=== PATIENT | female | born 1965 | race Caucasian/White ===

== ENCOUNTER → 2018-08-07 12:53 | Outpatient (CLI) | payer OTHER, SELFPAY ==
[2018-08-07 13:11] LABS: D-Dimer Quantitative (DVT/PE) < 0.27 FEU/ug/m (0.27-0.49)
== END ==
PROVIDERS: Referring Provider Family Medicine; Visit Provider Family Medicine
DX: R07.9 Chest pain, unspecified (principal)
CPT/HCPCS: 85379

== ENCOUNTER 2024-08-10 20:23 | Emergency (ER) | payer BC, SELFPAY ==
[2024-08-10 20:24] VITALS: BP 104/83; PULSE 96; RESP 16; TEMP 36.8; O2SAT 100; BMI 25.8
--- NOTE | 2024-08-10 20:51 | EKG12_ITS ---
Test Reason : Blood Pressure : */* mmHG Vent. Rate : 75 BPM Atrial Rate : 75 BPM P-R Int : 150 ms QRS Dur : 82 ms QT Int : 392 ms P-R-T Axes : 66 50 64 degrees QTcB Int : 437 ms Normal sinus rhythm Normal ECG Confirmed by MARY GRACE LEE, YAJAIRA ([id number]), social media editor HOLLEY SOTOMAYOR ([id number]) on 08/11/2024 8:54:45 AM Referred By: Confirmed By: YAJAIRA BRODY MD
--- NOTE | 2024-08-10 21:03 | RAD_ITS ---
PROCEDURE: CHEST 1 VIEW (PORTABLE) REASON FOR EXAM: Chest pain. TECHNIQUE: Frontal view of the chest. COMPARISON: None. FINDINGS: The cardiac and mediastinal contours are normal. The lungs are clear. RAD/Chest 1 View (Portable) IMPRESSION: NEGATIVE SINGLE VIEW OF THE CHEST. Reading Location: [id number]
[2024-08-10 21:12] LABS: Absolute Lymphocyte Count 0.24 X10^3/uL (0.83-4.51); Absolute Neutrophil Count 9.6 X10^3/uL (2.0-7.7); Basophil# 0.06 X10^3/uL; Basophil% 0.6 % (0-1); Eosinophil# 0.13 X10^3/uL; Eosinophils% 1.3 % (0-5); Hematocrit 45.8 % (37-47); Hemoglobin 15.5 g/dL (12.0-15.0); Lymphocyte # 0.24 X10^3/ul (0.83-4.51); Lymphocyte % 2.3 % (19-41); Mean Corp Hgb Conc 33.8 g/dL (32-36); Mean Corpuscular Hgb 31.7 pg (27.0-32.0); Mean Corpuscular Volume 93.7 fL (81-99); Mean Platelet Vol. 8.6 fl (6.2-12.0); Monocyte# 0.29 X10^3/uL; Monocyte% 2.8 % (0-10); NRBC Flagged by Analyzer 0 % (0-5); Neutrophil # 9.55 X10^3/uL (2.7-7.7); Neutrophil % 92.7 % (47-70); POSITIVE DIFFERENTIAL YES; Platelet Count 171 K/mm3 (150-450); RBC Distribution Width CV 11.6 % (11.6-14.6); RBC Distribution Width SD 39.7 fl (35.1-43.9); Red Blood Count 4.89 M/mm3 (4.2-5.4); White Blood Count 10.3 K/mm3 (4.4-11.0)
[2024-08-10 21:23] VITALS: BP 130/79; PULSE 79; RESP 20; O2SAT 100
[2024-08-10] MEDS: 0.9% Normal Saline (1000mL) 1,000 ML 999 ML IV (21:26)
[2024-08-10] MEDS: Aspirin 81 MG TAB.CHEW 324 MG PO (21:26)
[2024-08-10] MEDS: Ondansetron 4 MG/2 ML Vial IV (21:26)
[2024-08-10 21:36] LABS: Anion Gap 7 (5-15); BUN 28 mg/dL (7-18); BUN/Creat Ratio 34.3 RATIO (10-20); Calcium,Total 8.9 mg/dL (8.5-10.1); Chloride 108 mmol/L (98-107); Creatinine, Serum 0.82 mg/dL (0.55-1.02); EST Glomerular Filtration Rate 76 mL/min (>60); Est Glom Filt Rate - Afr Amer 93 mL/min (>60); Estimated Creatinine Clearance 76.29 ml/min; Glucose 118 mg/dL (74-106); Potassium 3.9 mmol/L (3.5-5.1); Sodium Level 138 mmol/L (136-145); Troponin-I HS (w/2H Reflex) < 3 pg/mL (3.0-54.0)
[2024-08-10 22:00] VITALS: BP 125/75; O2SAT 98
--- NOTE | 2024-08-10 22:08 | ED.VIS.CHEST ---
HPI History of Present Illness Chief Complaint: Chest Pain Informant: patient Narrative Narrative: Presents for chest pain started around 7 PM states tightness. While at work earlier headache and nausea. Went home. Vomiting x 2. No hematemesis. No cough. No myalgias. Due to chest symptoms came to ED. Denies dyspnea denies radicular symptoms. No history of [place]. No allergies. No recent travel, surgeries, no immobilizations. No history of PE or DVT. Denies tobacco, family history denies young age, hypertension, hyperlipidemia, diabetes. Prior Similar Symptoms: No CVD Risk Factors: Negative for Hypertension, Diabetes, Hypercholesterolemia, Family History 1' </=55 or Smoking PE Risk Factors: Negative for Recent Travel/Surgery, Recent Immobilization, Prior DVT or PE or Cancer [facility] Medical History Encounter for examination required by Department of Transportation (DOT) Home Medications ?Medication ?Instructions ?Recorded ?Last Taken ?Type ondansetron 4 mg disintegrating 4 mg PO Q8H PRN PRN Nausea #10 tabs 08/10/24 Unknown Rx tablet Allergy/AdvReac Type Severity Reaction Status Date / Time No Known Allergies Allergy Verified 08/10/24 20:26 Social History Smoking Status: Never smoker ROS [facility] ED Constitutional Constitutional ED: Denies chills, fever(s) or sweats ENT ENT ED: Denies sore throat Cardiovascular Cardiovascular: Reports chest pain; Denies leg edema, palpitations or racing heartbeat Respiratory/Chest Respiratory/Chest: Denies cough, dyspnea or dyspnea on exertion Gastrointestinal Gastrointestinal: Reports nausea and vomiting; Denies abdominal pain or diarrhea Genitourinary Genitourinary ED: Denies dysuria, hematuria or urinary frequency Musculoskeletal Musculoskeletal: Denies back pain, extremity pain or neck pain Integumentary Denies rash or wounds Neurologic Neurologic: Reports headache(s); Denies paresthesias or weakness EXAM Physical Exam Const Vital Signs: 08/10/24 20:24 08/10/24 21:20 08/10/24 21:23 Temperature 98.2 F Temperature Source Oral Pulse Rate 96 79 Respiratory Rate 16 20 H Blood Pressure 104/83 H 130/79 H Blood Pressure Mean 90 96 Pulse Ox 100 100 Oxygen Delivery Method Room Air Room Air Room Air 08/10/24 22:00 08/10/24 23:00 08/10/24 23:44 Temperature 98.4 F Temperature Source Pulse Rate 70 Respiratory Rate 15 16 Blood Pressure 125/75 H 130/79 H 124/75 H Blood Pressure Mean 91 96 91 Pulse Ox 98 96 100 Oxygen Delivery Method Room Air Room Air Positive well nourished and well developed General Appearance ED: well developed and NAD HEENT Reports moist mucous membranes normocephalic and atraumatic Eyes General Eye ED: Yes normal appearance of both eyes Neck full ROM Neck Narrative: No meningismus Chest Wall Chest: Negative for tenderness Resp normal respiratory effort and normal air movement Effort and Inspection: symmetric chest movement; Negative for respiratory distress Cardio regular rate, regular rhythm and no murmurs Peripheral Pulses: pulses 2+ throughout GI normal to inspection, nondistended, normoactive bowel sounds and non-tender Palpation: Negative for guarding or rebound tenderness present Extremity normal to inspection General Extremety ED: Negative for edema or tenderness General Extremity: Negative for edema Neuro oriented x3, CN's II-XII intact bilaterally and no sensory deficits noted Sensorium / Orientation: awake and alert Skin no rashes or lesions noted and no wounds Heart Score History: Slightly/Non-Suspicious ECG: Normal Age: >45 - <65 years Risk Factors: 1 or 2 Risk Factors Troponin: </= Normal Limit Score: 2 MDM MDM MDM Narrative Medical decision making narrative: Interventions / MDM: Differential diagnosis: Viral syndrome, chest pain Diagnosis considered but do not suspect: No clinical meningitis My EKG interpretation: Sinus rate of 75, no ST or T wave changes. Imaging independently reviewed and interpreted by myself: 1 view chest x-ray: No acute process. External documents reviewed: N/A Test considered but not ordered:N/A ED course: Chest pain with earlier headache nausea and vomiting. EKG sinus rhythm no acute findings. Cardiac workup initiated, aspirin ordered, fluids with Zofran. Labs troponin less than 3, per hospital algorithm no ACS concerns. Creatinine 0.82. Hemoglobin 15.5. Chest x-ray negative. Reevaluation symptom-free including her headache with fluids and Zofran. Viral swabs negative for COVID, influenza and RSV. Discussed viral syndrome with the patient atypical chest pain. Outpatient follow with her doctor with strict return precautions. All questions were answered. Re-evaluation: stable Disposition discussed with patient/family/significant other: Patient Case discussed with consulting clinician: N/A This note was generated with [employer] dictation software. It may contain incorrect words, spelling, and punctuation that were not noted in checking the note before signing. Lab Data Attestation: I reviewed the patient's lab results. Labs: Laboratory Results - last 24 hr 08/10/24 20:43 WBC 10.3 RBC 4.89 Hgb 15.5 H Hct 45.8 MCV 93.7 MCH 31.7 MCHC 33.8 RDW Std Deviation 39.7 RDW Coeff of [place] 11.6 Plt Count 171 MPV 8.6 Immature Gran % (Auto) 0.300 Neut % (Auto) 92.7 H Lymph % (Auto) 2.3 L Riley % (Auto) 2.8 Eos % (Auto) 1.3 Baso % (Auto) 0.6 Absolute Neuts (auto) 9.6 H Absolute Lymphs (auto) 0.24 L Nucleated RBC % 0 Sodium 138 Potassium 3.9 Chloride 108 H Carbon Dioxide 24.0 Anion Gap 7 BUN 28 H Creatinine 0.82 Estim Creat Clear Calc 76.29 Est GFR (MDRD) Af Amer 93 Est GFR (MDRD) Non-Af 76 BUN/Creatinine Ratio 34.3 H Glucose 118 H Calcium 8.9 Troponin I High Sens < 3 L Radiography Diagnostic Testing: Clinical Impression(s) from Imaging Studies Chest X-Ray 08/10/24 21:03 IMPRESSION: NEGATIVE SINGLE VIEW OF THE CHEST. Reading Location: [facility] Discharge Plan Triage Chief Complaint: Chest Pain ED Provider: Shaheed Hargrove Dx/Rx/DC Orders Clinical Impression: Acute viral syndrome, Chest pain Instructions: ED Viral Syndrome (Adult), ED Chest Pain, Noncardiac (Child) Prescriptions: New ondansetron 4 mg tablet,disintegrating 4 mg PO Q8H PRN PRN (Reason: Nausea) Qty: 10 0RF Stand Alone Forms: Work / School Excuse Primary Care Provider: Arianna Jose NP Referrals: Arianna Jose CLINICAL SOCIAL WORK THERAPIST, CLINICAL SOCIAL WORK THERAPIST-C [Primary Care Provider] - 1 Week Activity Restrictions/Additional Instructions: Cardiac workup negative. Chest x-ray negative. COVID, flu, RSV negative. Continue Tylenol or Motrin as needed. Continue oral fluids. Zofran as needed. Follow-up with your doctor. Print Language: Cameroonian Disposition Disposition: Home, Self Care Discharge Date/Time: 08/10/24 23:48
[2024-08-10 23:00] VITALS: BP 130/79; RESP 15; O2SAT 96
[2024-08-10 23:09] LABS: Reflex Troponin-HS? (from REC) Y
[2024-08-10 23:44] VITALS: BP 124/75; PULSE 70; RESP 16; TEMP 36.9; O2SAT 100
== END 2024-08-10 23:48 | disposition home or self-care (01) ==
PROVIDERS: Emergency Provider Emergency Medicine; PCP Registered Nurse; Visit Provider Emergency Medicine
DX: B34.9 Viral infection, unspecified (principal); R07.89 Other chest pain
CPT/HCPCS: 71045; 80048; 84484; 85025; 87631; 93005; 96361; 96374; 99284; J2405